=== PATIENT | male | born 1985 | race Caucasian/White ===

== ENCOUNTER 2016-12-09 15:32 | Emergency (ER) | payer MEDICAID ==
[~2016-12-09] VITALS: Wt 98.0 kg
[2016-12-09] MEDS ORDERED: LORAZEPAM 1 MG TAB PO ONE (17:30)
[2016-12-09] MEDS ORDERED: LORA1TAB PO (17:59)
--- NOTE | 2016-12-09 18:09 | ERD ---
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 non provoked. no cp HPI Patient is an otherwise healthy 30-year-old male who is complaining of anxiety and shortness of breath and states earlier he felt like he had palpitations. At this time he denies any chest pain or shortness of breath. He denies any cardiac past medical history. He states he feels very anxious. States he felt some numbness and tingling around his lips and his bilateral upper extremities. 0 out of 10 pain. Symptoms are now resolving. ROS All systems reviewed and are negative except as per history of present illness. Medications Home Meds Active Scripts Lorazepam* (Lorazepam*) 1 Mg Tablet, 1 MG PO Q8, #10 TAB Prov:ALEX DUPREE PA-C 12/09/16 PMhx/Soc Medical and Surgical Hx: pt denies Medical Hx, pt denies Surgical Hx History of Surgery: No Anesthesia Reaction: No Hx Neurological Disorder: No Hx Respiratory Disorders: No Hx Cardiac Disorders: No Hx Psychiatric Problems: No Hx Miscellaneous Medical Probl: No Hx Alcohol Use: Yes (SOCIALLY) Hx Substance Use: No Hx Tobacco Use: No Smoking Status: Never smoker FmHx Family History: No diabetes Physical Exam Vitals Vital Signs Date Time Temp Pulse Resp B/P Pulse Ox O2 Delivery O2 Flow Rate FiO2 12/09/16 15:39 97.9 91 20 165/82 98 Physical Exam Const: [] Head: Atraumatic Eyes: Normal Conjunctiva ENT: Normal External Ears, Nose and Mouth. Neck: Full range of motion..~ No meningismus. Resp: Clear to auscultation bilaterally Cardio: Regular rate and rhythm, no murmurs Abd: Soft, non tender, non distended. Normal bowel sounds Skin: No petechiae or rashes Back: No midline or flank tenderness Ext: No cyanosis, or edema Neur: Awake and alert Psych: Normal Mood and Affect Results 24 hrs Laboratory Tests Test 12/09/16 17:30 Bedside Glucose 121mg/dL Current Medications Medications (Trade) Dose Ordered Sig/Juan Route PRN Reason Start Time Stop Time Status Last Admin Dose Admin Lorazepam (Ativan) 1 mg ONCE ONCE PO 12/09/16 17:30 12/09/16 17:31 DC 12/09/16 17:28 Procedures/MDM Patient presents with most likely a stress anxiety reaction. Patient's blood pressure was elevated (>120/80) but appears stable without evidence of hypertension emergency or urgency. The patient was counseled about the risks of hypertension and urged to pursue outpatient monitoring and therapy within a week with their primary care physician. EKG was within normal limits with no evidence of ST elevation or acute ischemic changes. Accu-Chek also normal. Patient had good relief of his symptoms with Ativan and I discharged him with a small amount of Ativan. Given patient's age and lack of cardiac past medical history and risk factors I doubt any cardiac etiology for his symptoms. Recommended this patient follow up with her primary care doctor within 48 hours or return to the emergency room for any worsening of symptoms. However this time I do believe there is suitable for outpatient management. I answered all their questions and they agreed with the plan and were discharged home. Departure Diagnosis: Primary Impression: Anxiety Condition: Stable Patient Instructions: Anxiety Reaction Additional Instructions: Llame al doctor LOREE y nicole harini BALBINA PARA DENTRO DE 1-2 DAVILA.Dgale a la secretaria que nosotros le instruimos hacer esta balbina.Avise o llame si barba condicin se empeora antes de la balbina. Regresa aqui si peor o no mejor. ALEX DUPREE PA-C Dec 09, 2016 18:09
[2016-12-09 18:39] VITALS: BP 151/88; PULSE 82; RESP 18; TEMP 99.1
== END 2016-12-09 18:39 | disposition home or self-care (01) ==
LOC: FTE 15:32
DX: F41.9 Anxiety disorder, unspecified (principal)
CPT/HCPCS: 82962; Z7502; Z7610; 93005